=== PATIENT | male | born 1950 | race Caucasian/White ===

== ENCOUNTER 2023-01-21 10:37 | Day surgery (SDC) | payer MEDICARE, BC ==
[~2023-01-21 10:37] MED LIST: Ondansetron 4 MG/2 ML SDV ONE; Propofol 200 MG/20 ML SDV ONE; fentaNYL 100 MCG/2 ML SDV ONE
[2023-01-21] MEDS: Lactated Ringers 1,000 ML IV SCH (11:07)
== END 2023-01-21 13:35 | disposition home or self-care (01) ==
LOC: VM.SDS 10:37 → MERGE 10:37 → VM.SDS 13:35
PROVIDERS: ATTEND Surgery
DX: Z12.11 Encounter for screening for malignant neoplasm of colon (principal); K57.30 Diverticulosis of large intestine without perforation or abscess without bleeding; I10 Essential (primary) hypertension; E03.9 Hypothyroidism, unspecified; K21.9 Gastro-esophageal reflux disease without esophagitis; M06.9 Rheumatoid arthritis, unspecified; E78.00 Pure hypercholesterolemia, unspecified; I25.10 Atherosclerotic heart disease of native coronary artery without angina pectoris; M19.90 Unspecified osteoarthritis, unspecified site; Z98.890 Other specified postprocedural states; Z79.899 Other long term (current) drug therapy; Z87.891 Personal history of nicotine dependence; Z88.6 Allergy status to analgesic agent; Z79.890 Hormone replacement therapy
CPT/HCPCS: 00812; J2405; J2704; J3010; J7120

== ENCOUNTER 2023-01-22 16:10 | Emergency (ER) | payer MEDICARE, BC ==
[2023-01-22] MEDS ORDERED: Sodium Chloride 0.9% 10 ML Syringe FLUSH PRN (16:57)
[2023-01-22 17:20] LABS: PTT,PARTIAL THROMBOPLSTIN TIME 28.9 SEC (23.6-33.6)
[2023-01-22] MEDS ORDERED: HYDROmorphone 0.5 MG/0.5 ML Syringe IVPUSH ONE ×3 (17:22→19:14)
[2023-01-22] MEDS ORDERED: Iopamidol 612 MG/ML 100 ML Bottle IVPUSH ONE (17:27)
[2023-01-22 17:33] LABS: CHLORIDE,CL 101 mmol/L (98-107); SODIUM,NA 137 mmol/L (136-145)
[2023-01-22 17:34] LABS: ANION GAP 11.8 mmol/L (5-15); ESTIMATED GFR 58 mL/min (>=60)
[2023-01-22] MEDS ORDERED: Piperacillin/Tazobactam 4.5 GM in Sodium Chloride 0.9% 100 ML IV ONE (18:32)
[2023-01-22] MEDS ORDERED: Acetaminophen 500 MG Tab PO ONE (18:33)
== END 2023-01-22 19:30 | disposition short-term general hospital (02) ==
LOC: VM.ED 16:10
DX: K63.1 Perforation of intestine (nontraumatic) (principal); I10 Essential (primary) hypertension; K21.9 Gastro-esophageal reflux disease without esophagitis; Z79.82 Long term (current) use of aspirin; Z79.899 Other long term (current) drug therapy
CPT/HCPCS: 71045; 74177; 80053; 83735; 83880; 84100; 84484; 85025; 85610; 85730; 86140; 93005; 93010; 96365; 96375; 96376; 99284; 99285-25; A9270-GY; J1170; J2543; J3490; Q9967

== ENCOUNTER 2025-01-20 10:26 | Emergency (ER) | payer MEDICARE, BC ==
[2025-01-20] MEDS: Dexamethasone 4 MG/ML SDV IM ONE (10:55)
[2025-01-20] MEDS: Dexamethasone 4 MG/ML SDV IVPUSH ONE (10:57)
== END 2025-01-20 11:00 | disposition home or self-care (01) ==
LOC: VM.ED 10:26
DX: R21 Rash and other nonspecific skin eruption (principal); T36.0X5A Adverse effect of penicillins, initial encounter; I10 Essential (primary) hypertension; M19.90 Unspecified osteoarthritis, unspecified site; E03.9 Hypothyroidism, unspecified; Z88.6 Allergy status to analgesic agent; Z88.0 Allergy status to penicillin; Z88.8 Allergy status to other drugs, medicaments and biological substances; Z79.82 Long term (current) use of aspirin; Z79.899 Other long term (current) drug therapy; Z79.890 Hormone replacement therapy; Z90.49 Acquired absence of other specified parts of digestive tract
CPT/HCPCS: 96372; 99283; J1100